=== PATIENT | female | born 1960 | race Caucasian/White ===

== ENCOUNTER → 2019-06-16 | Outpatient (CLI) | payer OTHER | END | disposition home or self-care (01) | LOC: CFH 12:15 | PROVIDERS: ATTEND Nurse Practitioner Family | DX: Z12.31 Encounter for screening mammogram for malignant neoplasm of breast (principal); Z13.820 Encounter for screening for osteoporosis; M85.88 Other specified disorders of bone density and structure, other site; E03.9 Hypothyroidism, unspecified | CPT/HCPCS: 77080; 77067 ==

== ENCOUNTER → 2019-07-14 | Outpatient (CLI) | payer OTHER | END | disposition home or self-care (01) | LOC: CFH 11:56 | PROVIDERS: ATTEND Nurse Practitioner Family | DX: R92.2 Inconclusive mammogram (principal); N64.89 Other specified disorders of breast | CPT/HCPCS: 76642; 77065; G0279 ==

== ENCOUNTER 2019-11-16 05:57 | Day surgery (SDC) | payer OTHER ==
[~2019-11-16] VITALS: Ht 167.6 cm; Wt 67.0 kg
[2019-11-16] MEDS ORDERED: LOSA25TA25 PO (06:51)
[2019-11-16] MEDS ORDERED: HYDR25TA6 PO (06:51)
[2019-11-16] MEDS ORDERED: LEVO112T4 PO (06:51)
[2019-11-16] MEDS ORDERED: LOSA100T14 PO (06:51)
[2019-11-16] MEDS ORDERED: LACTATED RINGERS 1,000 ML IV SCH (06:52)
[2019-11-16 06:54] VITALS: BP 138/91
[2019-11-16] MEDS ORDERED: CHLORHEXIDINE 15 ML UDC MM ONE (07:00)
[2019-11-16 07:17] LABS: ALANINE AMINOTRANSFERASE 33 U/L (12-78); ALBUMIN 4.3 g/dL (3.4-5.0); ANION GAP 8 mmol/L (5-15); CALCIUM 9.7 mg/dL (8.5-10.1); CHLORIDE 109 mmol/L (98-107); CREATININE 1.24 mg/dL (0.55-1.02)
[2019-11-16 07:20] LABS: ALKALINE PHOSPHATASE 90 U/L (45-117); BILIRUBIN,TOTAL 1.2 mg/dL (0.2-1.0); TOTAL PROTEIN 7.9 g/dL (6.4-8.2)
[2019-11-16] MEDS ORDERED: PROPOFOL 50 ML ONE (07:23)
[2019-11-16] MEDS ORDERED: MIDAZOLAM 1 MG/ML, 2ML ONE (07:23)
[2019-11-16] MEDS ORDERED: FENTANYL PF 100 MCG/2ML ONE ×2 (07:23→09:52)
[2019-11-16] MEDS ORDERED: SUCCINYLCHOLINE 20 MG/ML, 10ML ONE (07:47)
[2019-11-16] MEDS ORDERED: ACETAMINOPHEN 325 MG TABLET PO PRN (08:30)
[2019-11-16] MEDS ORDERED: MEPERIDINE/PF 25MG/0.5ML IVPush PRN (08:30)
[2019-11-16] MEDS ORDERED: PROMETHAZINE 25 MG/ML, 1ML IVPush PRN (08:30)
[2019-11-16] MEDS ORDERED: OXYcodone 5 MG/5 ML ORAL.SOL UDC PO PRN (08:30)
[2019-11-16] MEDS ORDERED: HYDROmorphone 1 MG/ML, 1ML INJ IVPush PRN (08:30)
[2019-11-16] MEDS ORDERED: ONDANSETRON 2MG/ML, 2ML IVPush PRN (08:30)
[2019-11-16] MEDS ORDERED: ACETAMINOPHEN 650 MG/20.3 ML UDC ONE (09:44)
[2019-11-16] MEDS ORDERED: OXYcodone 5 MG/5 ML ORAL.SOL UDC ONE (09:45)
[2019-11-16] MEDS: FENTANYL PF 100 MCG/2ML IV PRN ×2 (09:50→09:56)
[2019-11-16] MEDS ORDERED: HYDROmorphone 1 MG/ML, 1ML INJ ONE (10:02)
[2019-11-16] MEDS ORDERED: EPINEPHRINE SYRINGE 0.1 MG/ML, 10ML ONE (10:50)
== END 2019-11-16 12:45 | disposition home or self-care (01) ==
LOC: OUT 05:57
PROVIDERS: ATTEND Internal Medicine Geriatric Medicine
DX: K22.5 Diverticulum of esophagus, acquired (principal); Z11.59 Encounter for screening for other viral diseases; F41.9 Anxiety disorder, unspecified; I10 Essential (primary) hypertension; M19.90 Unspecified osteoarthritis, unspecified site; Z79.899 Other long term (current) drug therapy; Z85.828 Personal history of other malignant neoplasm of skin; Z85.038 Personal history of other malignant neoplasm of large intestine
CPT/HCPCS: 36415; 43239; 80053; 87635; 88305; 93005; J0330; J1170; J2250; J2704; J3010; J7120